=== PATIENT | male | born 1955 | race Caucasian/White ===

== ENCOUNTER → 2018-11-06 | Outpatient (CLI) | payer MEDICARE, MEDICAID | END | disposition home or self-care (01) | LOC: PCVCCLINIC 10:00 | PROVIDERS: ATTEND Internal Medicine | DX: R00.1 Bradycardia, unspecified (principal); M15.3 Secondary multiple arthritis; I10 Essential (primary) hypertension; K21.9 Gastro-esophageal reflux disease without esophagitis | CPT/HCPCS: 93005; G0463 ==

== ENCOUNTER → 2018-11-26 | Outpatient (CLI) | payer MEDICARE, MEDICAID ==
[~2018-11-26] MED LIST: REGADENOSON 0.4 MG/5 ML DISP.SYRIN. IV ONE
--- NOTE | 2018-11-26 11:15 | PCVCIMAG ---
APPROVED REPORT Study performed: 11/26/2018 08:02:22 EXAM: Comprehensive 2D, Doppler, and color-flow Echocardiogram [facility]: 2.30 HR: 53 bpmBP: 114/78 mmHg Rhythm: Bradycardia Other Information Study Quality: Good Risk Factors: Cardiac Risk Factors: HTN, FHX of CAD Indications Bradycardia Syncope Chest Pain Hypertension/HDD 2D Dimensions IVSd: 12.75 (7-11mm)LVOT Diam: 22.20 (18-24mm) LVDd: 44.43 mm PWd: 7.58 (7-11mm)Ascending Ao: 33.01 (22-36mm) LVDs: 26.00 (25-40mm) Left Atrium: 25.42 (27-40mm) Aortic Root: 24.32 mm LV Single Plane 4CH: 36.04 % LV Single Plane 2CH: 60.93 % Volumes Left Atrial Volume (Systole) Single Plane 4CH: 47.23 mLSingle Plane 2CH: 66.38 mL Biplane LA Volume: 59.00 mLLA ESV Index: 25.00 mL/m2 Aortic Valve AoV Peak Irvin.: 1.40 m/s AO Peak Gr.: 7.87 mmHgLVOT Max P.47 mmHg LVOT Max V: 0.93 m/s DORINA Vmax: 2.57 cm2 Mitral Valve E/A Ratio: 2.3 MV Decel. Time: 187.80 ms MV E Max Irvin.: 0.79 m/s MV A Irvin.: 0.34 m/s TDI E/Lateral E': 6.08E/Medial E': 7.18 Medial E' Irvin.: 0.11 m/s Lateral E' Irvin.: 0.13 m/s Pulmonary Valve PV Peak Irvin.: 0.99 m/sPV Peak Gr.: 3.95 mmHg Pulmonary Vein P Vein S: 0.71 m/sP Vein A: 0.33 m/s P Vein D: 0.67 m/sP Vein A Dur.: 90.0 msec P Vein S/D Ratio: 1.06 Tricuspid Valve TR Peak Irvin.: 1.99 m/s TR Peak Gr.: 15.86 mmHg TV Vmax: 0.62 m/sPA Pressure: 23.00 mmHg Left Ventricle The left ventricle is normal size. There is normal LV segmental wall motion. There is normal left ventricular wall thickness. Left ventricular systolic function is low normal. LVEF is 50-55%. The left ventricular diastolic function is normal. Right Ventricle The right ventricle is normal size. The right ventricular systolic function is normal. Atria The left atrium size is normal. The right atrium size is normal. Aortic Valve Aortic valve is trileaflet. Minimal aortic valve sclerosis. No aortic regurgitation is present. There is no aortic valvular stenosis. Mitral Valve The mitral valve is normal in structure. There is no mitral valve regurgitation noted. No evidence of mitral valve stenosis. Tricuspid Valve The tricuspid valve is normal in structure. Trace tricuspid regurgitation with a PA pressure of 23 mmHg. Pulmonic Valve The pulmonary valve is normal in structure. There is no pulmonic valvular regurgitation. Great Vessels The aortic root is normal in size. The ascending aorta is normal in size. Aortic arch is normal in caliber. IVC is normal in size and collapses >50% with inspiration. Pericardium There is no pericardial effusion. There is no pleural effusion. <Conclusion> The left ventricle is normal size. LVEF is 50-55%. Aortic valve is trileaflet. Minimal aortic valve sclerosis. The mitral valve is normal in structure. The tricuspid valve is normal in structure. Trace tricuspid regurgitation with a PA pressure of 23 mmHg. The pulmonary valve is normal in structure. There is no pericardial effusion.
--- NOTE | 2018-11-27 13:08 | PCVCIMAG ---
APPROVED REPORT Imaging Protocol: Rest Tc-99m/Stress Tc-99m 1 day Study performed: 11/26/2018 10:03:16 Indication: Chest pain Patient Location: Out-Patient Stress Nurse: Tawnya Pabon RN, Sridevi Rubi RN SC Tech:Jayashree Jolleyjelani [facility] Ht: 6 ft 1 in Wt: 239 lbs BSA: 2.32 m2 HR: 57 bpm BP: 147/83 mmHg BMI: 31.52 Rhythm: Sinus Bradycardia Medical History Medical History: HTN Medications: Lexapro, Gabapentin, Lisinopril, Oxycodone, Protonix, Carafate, Flomax, Ambien Allergies: No known drug allergies Cardiac Risk Factors: Age Pretest Chest Pain Characteristics: No chest pain Exercise History: Indeterminate Physical Disabilities: Back Resting Data Rest SPECT myocardial perfusion imaging was performed in supine position 45 minutes following the intravenous injection of 10.5 mCi of Tc-99m Sestamibi. Time of rest injection: 0900 Date: 11/26/2018 Administration Route: IV Administration Site: Right Hand Pharmacologic Stress Pharmacologic stress test was performed by injecting Regadenoson 0.4 mg IV push over 10-15 seconds immediately followed by the intravenous injection of 32.3 mCi of Tc-99m Sestamibi. Time of stress injection: 1030 Date: 11/26/2018 Administration Route: IV Administration Site: Right Hand Gated Stress SPECT was performed 45 minutes after stress injection. The images were gated to evaluate regional wall motion and calculate left ventricular ejection fraction. Stress Test Details Stress Test: Pharmacologic stress testing performed using 0.4 mg of regadenoson per 5 mL given IV over 10 seconds. Reason for pharmacologic stress test: physical limitation, knee and back issues and light headed. HRMax Heart Rate (APMHR): 158 bpm Resting HR: 57 bpmTarget HR (85% APMHR): 134 bpm Max HR Achieved: 60 bpm % of APMHR: 37 Recovery HR: 76 bpm BP Resting BP: 147/83 mmHg Max BP: 125/79 mmHg Recovery BP: 152/90 mmHg ECG Resting ECG: Sinus Bradycardia Stress ECG: Sinus Rhythm Arrhythmia: None Recovery ECG: Sinus Rhythm Clinical Reason for Termination: Completed protocol Stress Symptoms: Abdominal discomfort, Dizziness, Chest heaviness Symptoms resolved with caffeine. Stress ECG Conclusion 1. Adequate response intravenous Lexiscan 2. Inadequate heart rate for ECG diagnosis Study Data Post stress, the left ventricular ejection was 74%.. SSS: 0 SRS: 0 SDS: 0 TID = 1.21. Perfusion There is a small area of severely reduced uptake in the basal and mid segment of the inferior wall which is seen on the stress images as well as the resting images. This area thickens and moves normally and is most consistent with attenuation artifact. Wall Motion Normal left ventricular wall motion. Nuclear Conclusion ECG Findings: non-diagnostic Clinical Findings: negative for ischemia Nuclear Findings: negative for ischemia Exercise Capacity: not assessed Left Ventricular Function: normal 1. Low Risk Study 2. Post Exercise LVEF 73% without wall motion abnormalities <Conclusion> 1. Adequate response intravenous Lexiscan 2. Inadequate heart rate for ECG diagnosis
== END | disposition home or self-care (01) ==
LOC: PCVCIMAG 07:54
PROVIDERS: ATTEND Internal Medicine
DX: I35.8 Other nonrheumatic aortic valve disorders (principal); R00.1 Bradycardia, unspecified; R55 Syncope and collapse; R07.9 Chest pain, unspecified; I10 Essential (primary) hypertension
CPT/HCPCS: 78452; 93017; 93306; A9500; J2785